=== PATIENT | male | born 1995 | race African-American/Black ===

== ENCOUNTER 2023-06-06 14:50 | Emergency (ER) | payer OTHER, SELFPAY ==
[2023-06-06 15:17] VITALS: BP 133/80; PULSE 54; RESP 16; TEMP 37.2; O2SAT 99
--- NOTE | 2023-06-06 15:28 | ED.URI ---
HPI - URI/Sore Throat General Chief Complaint: Upper Respiratory Infection Stated Complaint: not feeling well Time Seen by Provider: 06/06/23 15:28 Source: patient Mode of arrival: ambulatory Limitations: no limitations History of Present Illness HPI Narrative: 27-year-old male presents with complaint of cough for to 4 days. Patient reports he feels that he is having asthma exacerbation from recent contact with cats. States eczema gas. States his asthma is always exacerbated when around cats. Went to ER on Sunday due to right rib pain from coughing and had normal chest x-ray and rib x-ray. reports that he was given prednisone to treat nerve pain under right ribs . States that your night he had cough and asthma symptoms and discharge him home. Patient reports worsening of shortness of breath today. reports chest tightness and cannot take full breath. All systems reviewed and negative except as noted above. Related Data Home Medications Medication Instructions Recorded Confirmed albuterol 90 mcg/actuation aerosol See Rx Instructions .Route .COMPLEX 06/06/23 06/06/23 inhaler lidocaine 5 % topical patch 1 patch transdermal DAILY 06/06/23 06/06/23 prednisone 20 mg tablet 20 mg PO DAILY 06/06/23 06/06/23 Allergies Allergy/AdvReac Type Severity Reaction Status Date / Time No Known Allergies Allergy Verified 06/06/23 15:33 Review of Systems Review of Systems: CONSTITUTIONAL: Denies fever, chills, or sweats. EYES: Denies visual changes, redness, or discharge. ENT: Denies rhinorrhea, congestion, sore throat, or otalgia. CARDIOVASCULAR: Denies chest pain, palpitations, or edema. RESPIRATORY: Reports cough and dyspnea on exertion. GASTROINTESTINAL: Denies abdominal pain, nausea, vomiting, or diarrhea. GENITOURINARY: Denies dysuria or hematuria. SKIN: Denies rash or itching. MUSCULOSKELETAL: Denies back pain, joint pain, or myalgia. NEUROLOGIC: Denies headache, numbness, or weakness. PSYCHIATRIC: Denies anxiety or depression. All other systems reviewed are negative, except as documented in HPI. PMFSH Comments At time of signature, agree with nursing past medical, surgical, social and family history. There is no relevant family history pertinent to the presenting complaint. Exam Narrative: GENERAL: This is a well-nourished, well-developed patient, in no apparent distress. HEAD: normocephalic, atraumatic. EYES: PERRL. Sclera clear/white. Vision is grossly intact. EARS: External ears normal, auditory canals clear and without drainage, TMs normal without perforation. Hearing grossly intact. NOSE: External nose normal with no obvious nasal discharge, nares without redness, no rhinorrhea. THROAT: Mucous membranes moist, posterior pharynx clear. NECK: Neck supple, non-tender without lymphadenopathy, masses or thyromegaly. CARDIOVASCULAR: Regular rate and rhythm without murmurs, gallops, or rubs. RESPIRATORY: Clear to auscultation. Breath sounds equal bilaterally. No wheezes, rales, or rhonchi. SKIN: warm, Dry, intact with no suspicious lesions or rash, good texture and turgor. NEURO: awake, alert, and oriented to person, place and time. There were no obvious focal neurologic abnormalities. EXTREMITIES: No joint tenderness, effusion, or edema noted. Course Course Level of Care: Express Care Visit Vital Signs Vital signs: Vital Signs Temperature 37.2 C 06/06/23 15:17 Pulse Rate 54 L 06/06/23 15:17 Respiratory Rate 16 06/06/23 15:17 Blood Pressure 133/80 06/06/23 15:17 Pulse Oximetry 99 06/06/23 15:17 Oxygen Delivery Room Air 06/06/23 15:17 Temperature 37.2 C 06/06/23 15:17 Pulse Rate 54 L 06/06/23 15:17 Respiratory Rate 16 06/06/23 15:17 Blood Pressure 133/80 06/06/23 15:17 Pulse Oximetry 99 06/06/23 15:17 Oxygen Delivery Room Air 06/06/23 15:17 reviewed MDM - URI/Sore Throat MDM Narrative Medical decision making narrative: Patient report
[2023-06-06] MEDS: ALBUTEROL SULFATE NEB 2.5 MG/3 ML INH INHALATION (15:35)
[2023-06-06] MEDS: IPRATROPIUM BR 0.02% INH SOLN 0.5 MG/2.5 ML VIAL INHALATION (15:36)
== END 2023-06-06 16:39 | disposition home or self-care (01) ==
PROVIDERS: Emergency Provider Nurse Practitioner Family
DX: J45.901 Unspecified asthma with (acute) exacerbation (principal); Z20.822 Contact with and (suspected) exposure to COVID-19
CPT/HCPCS: 87426; 87804; 94640; 99203; G0463